=== PATIENT | female | born 1950 ===

== ENCOUNTER 2017-07-20 18:20 | Emergency (ER) | payer BC, MEDICARE, OTHER ==
[2017-07-20] MEDS ORDERED: Sodium Chloride 0.9% 1,000 ML IV STA (19:01)
--- NOTE | 2017-07-20 19:04 | ED PDOC ---
HPI: General Adult Time Seen by Provider: 07/20/17 19:01 Chief Complaint (Nursing): GI Problem Chief Complaint (Provider): DIZZINESS/VOMITING History Per: Patient (67 Y/O FEMALE HERE WITH COMPLAINT OF DIZZINESS ASSOCIATED WITH NAUSEA/VOMITING SINCE THIS MORNING. PATIENT STATES SHE HAS A H/O VERTIGO BUT FEELS TODAY'S DIZZINESS IS DIFFERENT SHE DOES NOT HAVE TO KEEP EYES CLOSED. DENIES ANY WEAKNESS/DIFFICULTY WITH WALKING OR TALKING. NOTES ONGOING ABDOMINAL BLOATING X 1 MONTH AND WAS GIVEN PANTOPRAZOLE RX BY PMD. PATIENT UNSURE IF SYMPTOMS CAUSED BY MEDICATIONS. ) Past Medical History Reviewed: Historical Data, Nursing Documentation, Vital Signs Vital Signs: Last Vital Signs Temp 98.9 F 07/20/17 18:25 Pulse 65 07/20/17 18:25 Resp 14 07/20/17 18:25 BP 152/84 H 07/20/17 18:25 Pulse Ox 98 07/20/17 19:57 - Medical History PMH: Asthma, HTN, Hyperlipidemia - Family History Family History: States: No Known Family Hx - Home Medications Home Medications: Ambulatory Orders Medication Instructions Recorded Albuterol HFA [Ventolin HFA 90 1 puff IH ASDIR #1 unit 07/07/15 mcg/actuation (8 g)] Benzonatate 200 mg PO TID PRN #20 capsule 07/07/15 Levofloxacin [Levaquin] 500 mg PO DAILY #7 tablet 07/07/15 Acetaminophen [Acetaminophen Extra 2 tab PO Q6 PRN #24 tablet 03/21/16 Strength] Ibuprofen [Motrin] 600 mg PO Q8 PRN #21 tab 03/21/16 Promethazine/Codeine 5 ml PO Q12 PRN #100 ml 03/21/16 [Codeine/Promethazine 10 MG/5 Ml-6.25 MG/5 Ml] Pseudoephedrine [Sudafed Tab] 60 mg PO Q6 PRN #24 tab 03/21/16 Methylprednisolone [Medrol Dose 4 mg PO DAILY #21 mg 05/18/16 Pack (21 tabs)] Tobramycin 0.3% [Tobrex 0.3% Ophth 1 drop OU QID #1 bottle 05/18/16 Soln] - Allergies Allergies/Adverse Reactions: Allergies Allergy/AdvReac Type Severity Reaction Status Date / Time Penicillins Allergy RASH Verified 07/20/17 18:23 Sulfa (Sulfonamide Allergy RASH Verified 07/20/17 18:23 Antibiotics) Review of Systems ROS Statement: Except As Marked, All Systems Reviewed And Found Negative Physical Exam - Reviewed Nursing Documentation Reviewed: Yes Vital Signs Reviewed: Yes - Physical Exam Appears: Positive for: Well, Non-toxic, No Acute Distress Head Exam: Positive for: ATRAUMATIC, NORMAL INSPECTION, NORMOCEPHALIC Skin: Positive for: Normal Color, Warm, DRY Eye Exam: Positive for: EOMI, Normal appearance, PERRL ENT: Positive for: Normal ENT Inspection Neck: Positive for: Normal, Painless ROM Cardiovascular/Chest: Positive for: Regular Rate, Rhythm Respiratory: Positive for: CNT, Normal Breath Sounds Gastrointestinal/Abdominal: Positive for: Normal Exam, Soft Back: Positive for: Normal Inspection Extremity: Positive for: Normal ROM Neurologic/Psych: Positive for: Alert, Oriented - Laboratory Results Result Diagrams: 07/20/17 19:05 - ECG ECG Rhythm: Positive for: Sinus Bradycardia (59BPM; NO ECTOPY; NO ACUTE CHANGES) O2 Sat by Pulse Oximetry: 98 - Progress ED Course And Treament: REGLAN 10 MG IV X 1 DOSE ANTIVERT 25 MG X 1 DOSE pepcid 20 mg i vx 1 dose NS 1 LITER 500 ML PER HOUR Disposition - Clinical Impression Clinical Impression: Dizziness - Patient ED Disposition Is Patient to be Admitted: Transfer of Care - Disposition Disposition: Transfer of Care Disposition Time: 20:00 Condition: FAIR Forms: [facility] ([place]) Patient Signed Over To: Kimberly Delgadillo Handoff Comments: HEAD CT/EKG/LABS/RE-EVAL
[2017-07-20 19:16] LABS: BASO % 0.3 % (0.0-2.0); EOS # 0.1 K/uL (0.0-0.7); EOS % 0.9 % (0.0-4.0); LYMPH % 13.9 % (20.0-40.0); MEAN CORPUSCULAR HEMOGLOBIN 32.6 pg (27.0-31.0); MEAN PLATELET VOLUME 8.1 fl (7.2-11.7); MONO # 0.4 K/uL (0.0-0.8); MONO % 6.1 % (0.0-10.0); NEUT # 5.7 K/uL (1.8-7.0); NEUT % 78.8 % (50.0-75.0); RBC 4.29 Mil/uL (3.80-5.20); RED CELL DISTRIBUTION WIDTH 12.9 % (11.5-14.5); WHITE BLOOD COUNT 7.2 K/uL (4.8-10.8)
[2017-07-20 19:59] LABS: ALB/GLOB RATIO 1.3 (1.0-2.1); ALBUMIN 4.4 g/dL (3.5-5.0); ALT/SGPT 42 U/L (9-52); AST/SGOT 30 U/L (14-36); BLOOD UREA NITROGEN 12 mg/dl (7-17); CALCIUM 9.5 mg/dL (8.4-10.2); GFR AFRICAN-AMERICAN > 60; GFR NON-AFRICAN AMERICAN > 60; LIPASE 74 U/L (23-300)
--- NOTE | 2017-07-20 20:00 | CT ---
EXAM: CT Head Without Intravenous Contrast EXAM DATE/TIME: 07/20/2017 6:59 PM CLINICAL HISTORY: 67 years old, female; Signs and symptoms; Dizziness; Patient HX: Patient C/O of dizz associated with nausea today. H/o vertigo TECHNIQUE: Axial computed tomography images of the head/brain without intravenous contrast. All CT scans at this facility use one or more dose reduction techniques, viz.: automated exposure control; ma/kV adjustment per patient size (including targeted exams where dose is matched to indication; i.e. head); or iterative reconstruction technique. Coronal and sagittal reformatted images were created and reviewed. COMPARISON: CT HEAD OR BRAIN W/O CONT 2013-09-14 19:06 FINDINGS: Brain ventricles: Ventricles are normal in size and configuration. There is no midline shift. There are no intra-axial or extra-axial mass lesions or areas of hemorrhage. There are no abnormal fluid collections. Hilliard-white differentiation is maintained. Bones: Cranial vault is intact. Soft tissues: unremarkable Sinuses: There is no acute sinusitis. Ears and mastoids: Middle ears and mastoids are unremarkable Orbits: Orbital contents are unremarkable. IMPRESSION: No acute intracranial abnormality
--- NOTE | 2017-07-20 20:08 | ED PDOC ---
- Laboratory Results Result Diagrams: 07/20/17 19:05 07/20/17 19:05 - ECG O2 Sat by Pulse Oximetry: 98 - Progress ED Course And Treament: Case endorsed to bid writer from Anthony [facility]GA pending labs, imaging EXAM: CT Head Without Intravenous Contrast EXAM DATE/TIME: 07/20/2017 6:59 PM CLINICAL HISTORY: 67 years old, female; Signs and symptoms; Dizziness; Patient HX: Patient C/O of dizz associated with nausea today. H/o vertigo TECHNIQUE: Axial computed tomography images of the head/brain without intravenous contrast. All CT scans at this facility use one or more dose reduction techniques, viz.: automated exposure control; ma/kV adjustment per patient size (including targeted exams where dose is matched to indication; i.e. head); or iterative reconstruction technique. Coronal and sagittal reformatted images were created and reviewed. COMPARISON: CT HEAD OR BRAIN W/O CONT 2013-09-14 19:06 FINDINGS: Brain ventricles: Ventricles are normal in size and configuration. There is no midline shift. There are no intra-axial or extra-axial mass lesions or areas of hemorrhage. There are no abnormal fluid collections. Hilliard-white differentiation is maintained. Bones: Cranial vault is intact. Soft tissues: unremarkable Sinuses: There is no acute sinusitis. Ears and mastoids: Middle ears and mastoids are unremarkable Orbits: Orbital contents are unremarkable. IMPRESSION: No acute intracranial abnormality On re-eval, patient resting comfortably; states dizziness has improved. Patient ambulated to the bathroom without difficulty Patient educated on findings, discharged with instructions to follow up with PMD in 2-3 days. Advised to d/c Pantoprazole until f/up with PMD Return precautions given. Disposition - Clinical Impression Clinical Impression: Dizziness - POA Present On Arrival: None - Disposition Disposition: Routine/Home Disposition Time: 21:16 Condition: IMPROVED Prescriptions: Meclizine [Meclizine*] 25 mg PO TID PRN #21 tab PRN Reason: Dizziness Instructions: Vertigo (a Type of Dizziness) Forms: [employer] ([place]), [facility] ED School/Work Excuse
[2017-07-20 22:26] VITALS: BP 146/86; PULSE 72; RESP 18; TEMP 98.6; O2SAT 99
--- NOTE | 2017-07-21 14:07 | CARD ---
APPROVED REPORT EKG Measurement Heart [id number] <Conclusion> Sinus bradycardia Otherwise normal ECG
== END 2017-07-20 21:43 | disposition home or self-care (01) ==
LOC: H.ER 18:20
DX: R42 Dizziness and giddiness (principal); E78.5 Hyperlipidemia, unspecified; I10 Essential (primary) hypertension; J45.909 Unspecified asthma, uncomplicated; Z88.0 Allergy status to penicillin
CPT/HCPCS: 70450; 80053; 83690; 83735; 84484; 85025; 93005; 96374; 96375; 99285; J2765; J7040